=== PATIENT | female | born 1960 | race Two or more races ===

== ENCOUNTER 2019-01-06 09:02 | Outpatient (CLI) | payer OTHER ==
[~2019-01-06 09:02] MED LIST: METFORMIN HCL500 MG; SIMVASTATIN; SYNTHROID88 MCG
== END 2019-01-06 09:09 | disposition home or self-care (01) ==
LOC: SONOGRAMA 09:02 → MAMO-SONO 09:45
DX: M76.60 Achilles tendinitis, unspecified leg (principal)

== ENCOUNTER → 2019-05-23 | Outpatient (CLI) | payer OTHER | END | disposition home or self-care (01) | LOC: NUCLEAR 07:00 | DX: C10.2 Malignant neoplasm of lateral wall of oropharynx (principal) | CPT/HCPCS: 78070; A9500 ==